=== PATIENT | female | born 1990 | race Caucasian/White ===

== ENCOUNTER 2016-06-01 22:56 | Emergency (ER) | payer SELFPAY ==
[2016-06-01 23:16] VITALS: BP 113/68; PULSE 71; TEMP 97.9; BMI 21.0
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
[2016-06-02] MEDS ORDERED: HYDROCODONE 5 MG/ACETAMIN 325 MG TAB PO ONE (02:10)
[2016-06-02] MEDS ORDERED: CYCLOBENZAPRINE 10 MG TAB PO ONE (02:10)
[2016-06-02] MEDS ORDERED: PREDNISONE 10 MG TAB PO ONE (02:10)
== END 2016-06-02 02:26 | disposition home or self-care (01) ==
LOC: ED 22:56
DX: M54.30 Sciatica, unspecified side (principal)
CPT/HCPCS: 99283; J3490